=== PATIENT | male | born 1940 | race Caucasian/White ===

== ENCOUNTER 2017-05-03 17:55 | Emergency (ER) | payer MEDICARE, OTHER | END 2017-05-03 20:55 | disposition home or self-care (01) | LOC: ER 17:55 | DX: R20.2 Paresthesia of skin (principal); J01.10 Acute frontal sinusitis, unspecified; J01.00 Acute maxillary sinusitis, unspecified; R50.9 Fever, unspecified; Z79.899 Other long term (current) drug therapy | CPT/HCPCS: 36415; 96360; 96361 ==